=== PATIENT | female | born 1980 | race Caucasian/White ===

== ENCOUNTER 2016-10-18 17:13 | Emergency (ER) | payer OTHER ==
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
[2016-10-18] MEDS ORDERED: HYDROCODONE/ACETAMINOPHEN 5-325 MG 6 TAB/DSPK PO PRN (22:14)
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
[2016-10-18 23:16] VITALS: BP 120/93
== END 2016-10-18 22:40 | disposition home or self-care (01) ==
LOC: ER 17:13
DX: R51 Headache (principal); M54.42 Lumbago with sciatica, left side; V49.40XA Driver injured in collision with unspecified motor vehicles in traffic accident, initial encounter; Z98.1 Arthrodesis status
CPT/HCPCS: 99283

== ENCOUNTER 2018-12-19 01:35 | Emergency (ER) | payer OTHER ==
--- NOTE | 2018-12-19 02:42 | ER Document Report ---
ED Head/Face/Scalp Injury - General Chief Complaint: Head Injury Stated Complaint: HEAD INJURY Time Seen by Provider: 12/19/18 02:27 TRAVEL OUTSIDE OF THE [place] IN LAST 30 DAYS: No - HPI Notes: Patient is a 38-year-old female that presents to the emergency department for chief complaint of injury to her head and neck. 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 She states it knocked her to the ground. She denied any loss of consciousness. This occurred at 2130 this evening. Patient is complaining of stiffness and pain in her neck as well as some paresthesias to her jaw bilaterally. Patient also states she feels a "fullness" in her right ear but denies any ear pain or hearing deficit. She denies any headache, vision changes and weakness. She has not taken any medicine for pain. She denies aggravating or relieving factors to her pain. Past Medical History: Negative Past Surgical History: Negative Social History: Denies drugs alcohol tobacco Family History: Reviewed and noncontributory for presenting illness Allergies: Reviewed, see documented allergy list. REVIEW OF SYSTEMS: CONSTITUTIONAL : No fever No chills No diaphoresis No recent illness EENT: Right ear pressure No vision changes No congestion No sore throat CARDIOVASCULAR: No chest pain No palpitations RESPIRATORY: No shortness of breath No cough No difficulty breathing GASTROINTESTINAL: No abdominal pain No nausea No vomiting No diarrhea GENITOURINARY: No dysuria No hematuria No difficulty urinating MUSCULOSKELETAL: Neck pain No back pain No leg pain No arm pain SKIN: No rashes No lesions LYMPHATIC: No swollen, enlarged glands. NEUROLOGICAL: No lightheadedness No headache No weakness paresthesias PSYCHIATRIC: No anxiety No depression PHYSICAL EXAMINATION: Vital signs reviewed, nursing noted reviewed. GENERAL: Well-appearing, well-nourished and in no acute distress. HEAD: Atraumatic, normocephalic. EYES: Eyes appear normal, extraocular movements intact, sclera anicteric, conjunctiva are normal. ENT: nares patent, oropharynx clear without exudates. Moist mucous membranes. normal TMs bilaterally NECK: No midline spinal tenderness. Mild bilateral paraspinal tenderness and muscle fullness with normal range of motion, supple without lymphadenopathy LUNGS: Breath sounds clear to auscultation bilaterally and equal. No wheezes rales or rhonchi. HEART: Regular rate and rhythm without murmurs ABDOMEN: Soft, nontender, normoactive bowel sounds. No rebound, guarding, or rigidity. No masses appreciated. EXTREMITIES: Nontender, good range of motion, no pitting or edema. Back: No midline thoracic or lumbar tenderness, normal range of motion NEUROLOGICAL: No focal neurological deficits. Moves all extremities spontaneously Motor grossly intact on exam. No reported decreased sensation on facial neurologic testing PSYCH: Normal mood, normal affect. SKIN: Warm, Dry, normal turgor, no rashes or lesions noted on exposed skin - Related Data Allergies/Adverse Reactions: Penicillins Allergy (Verified 01/31/15 13:30) Past Medical History - Social History Smoking Status: Never Smoker Family History: Reviewed & Not Pertinent Renal/ Medical History: Reports: Hx Kidney Stones Musculoskeletal Medical History: Reports Hx Arthritis - Chronic low back pain Past Surgical History: Reports: Hx Orthopedic Surgery - spinal fusion x 2 - Immunizations Hx Diphtheria, Pertussis, Tetanus Vaccination: Yes - unknown Physical Exam - Vital signs Vitals: Temp Pulse Resp BP Pulse Ox 97.9 F 90 19 135/94 H 97 12/19/18 01:40 12/19/18 01:40 12/19/18 01:40 12/19/18 01:40 12/19/18 01:40 Course - Re-evaluation Re-evalutation: 12/19/18 02:50 Vitals reviewed. Nursing notes reviewed. Patient has no focal neurologic deficits and did not report any sensation deficit upon facial exam. She does state that her jaw feels numb and different but states she cannot explain it further. Her ear exam is unremarkable. There is no hemotympanum. Patient has normal vision. She has no midline spinal tenderness to suggest acute spinal fracture. Her mechanism of injury was low and injury occurred about 6 hours ago. She has not had any intractable vomiting. I do not feel CT imaging of her brain is currently indicated given the low probability of intracranial hemorrhage and risk of exposure to radiation. I did discuss this with the patient who is in agreement. She will be given Motrin for symptomatic management. She was counseled on symptoms to return to the emergency room. She is stable at discharge. - Vital Signs Vital signs: Temp Pulse Resp BP Pulse Ox 97.9 F 90 19 135/94 H 97 12/19/18 01:40 12/19/18 01:40 12/19/18 01:40 12/19/18 01:40 12/19/18 01:40 Discharge - Discharge Clinical Impression: Head injury Qualifiers: Encounter type: initial encounter Qualified Code(s): S09.90XA - Unspecified injury of head, initial encounter Neck strain Qualifiers: Encounter type: initial encounter Qualified Code(s): S16.1XXA - Strain of muscle, fascia and tendon at neck level, initial encounter Condition: Stable Disposition: HOME, SELF-CARE Instructions: Head Injury Precautions ([facility]), Neck Injury (Cervical Strain) ([facility]) Additional Instructions: Please return to the emergency department if you have any worsening, or concern of your symptoms. Please return to the emergency department if you develop chest pain, difficulty breathing, severe abdominal pain, or ongoing vomiting. Please follow-up with your primary care physician in 2-3 days and any other recommended physicians. If prescribed, take all medications as directed. If you have any questions or concerns do not hesitate to return the emergency department for evaluation. Prescriptions: Cyclobenzaprine HCl [Flexeril 5 mg Tablet] 5 mg PO TID PRN #10 tablet PRN Reason: Neck pain Forms: Elevated Blood Pressure, Return to Work Referrals: [facility] [Provider Group] - Follow up in 3-5 days
[2018-12-19] MEDS ORDERED: IBUPROFEN 600 MG TABLET PO ONE (02:44)
[2018-12-19 03:23] VITALS: BP 128/90
== END 2018-12-19 03:22 | disposition home or self-care (01) ==
LOC: ER 01:35
DX: S09.90XA Unspecified injury of head, initial encounter (principal); S16.1XXA Strain of muscle, fascia and tendon at neck level, initial encounter; W20.8XXA Other cause of strike by thrown, projected or falling object, initial encounter; Y92.520 Airport as the place of occurrence of the external cause; Y99.0 Civilian activity done for income or pay; G89.29 Other chronic pain; M54.5 Low back pain; Z88.0 Allergy status to penicillin; Z98.1 Arthrodesis status; Z87.442 Personal history of urinary calculi
CPT/HCPCS: 99283